=== PATIENT | female | born 1990 | race African-American/Black ===

== ENCOUNTER 2025-05-29 14:15 | Emergency (ER) | payer SELFPAY ==
--- NOTE | ~2025-05-29 | CT_ITS ---
[facility] EXAMINATION: CT abdomen pelvis w con COMPARISON: None HISTORY: RLQ pain TECHNIQUE: Axial images were obtained through the abdomen, pelvis post administration of IV contrast. Oral contrast was also administered. Coronal reconstruction images were obtained from the axial views. CT scan performed using dose optimization techniques including the following automated exposure control; adjustment of mA and/or kV; use of iterative reconstruction technique. Automatic exposure control was used to reduce radiation dose. Permanent radiation dose record is archived to PACS. FINDINGS: CT abdomen: LUNG BASES: The lung bases are clear. The visualized portions of the heart and pericardium are unremarkable. LIVER: Unremarkable, liver contours intact, no lesions. SPLEEN: Unremarkable. KIDNEYS: Right Kidney: Unremarkable. No calculi. No hydronephrosis. Left Kidney: Unremarkable. No calculi. No hydronephrosis ADRENAL GLANDS: Unremarkable. PANCREAS: Unremarkable. GALLBLADDER/BILIARY: Unremarkable. No biliary dilatation. STOMACH AND ESOPHAGUS: Visualized stomach and esophagus within normal limits. BOWEL/MESENTERY: Moderate fecal content. Appendix normal. Mesentery normal. There are no thickened or dilated loops of small bowel. ADENOPATHY/RETROPERITONEUM: No lymphadenopathy. AORTA/VASCULATURE: Normal caliber aorta. FREE FLUID OR FREE AIR: No free fluid.. CT pelvis: SOLID ORGANS/REPRODUCTIVE: There are multiple uterine fibroids identified the largest of the right uterine body 6 x 7 cm incompletely evaluated, some of the fibroids appear partially submucosal. Arising from the right ovary there is a large complex cystic focus measuring 8.2 x 8 cm. BLADDER: Within normal limits. OSSEOUS STRUCTURES: No acute osseous abnormality.No suspicious lesions. OVERLYING SOFT TISSUES: Unremarkable. IMPRESSION: 1. No acute intra-abdominal process. 2. Probable fibroid change of the uterus with a large complex right ovarian lesion possibly endometrioma, other etiologies are not excluded. Contrast- enhanced MRI is recommended Reviewed, dictated and finalized at location [facility] IMPRESSION: 1. No acute intra-abdominal process. 2. Probable fibroid change of the uterus with a large complex right ovarian les ion possibly endometrioma, other etiologies are not excluded. Contrast-enhanced MRI is recommended
--- NOTE | ~2025-05-29 | US_ITS ---
EXAMINATION: Ultrasound pelvis complete, transabdominal: DATE: 05/29/2025. INDICATION: 35-year-old with right lower quadrant pain. Finding of fibroid uterus with large complex right ovarian lesion on CT scan. Concern for ovarian torsion. Last menstrual period on May 05. TECHNIQUE: This patient declined transvaginal examination. Transabdominal ultrasound with Doppler was performed. COMPARISON: CT dated 05/29/2025. FINDINGS: Bulky uterus is noted measuring the length of 15 cm and a width of 7 cm. Multiple heterogeneous uterine masses are noted, suggestive of multiple fibroids. The fibroid mass measure up to 8 cm in diameter. However, no definite, separate cystic mass of the adnexa is noted to the right of the midline corresponding to the lesion suspected on CT scan. The 8 cm size lesion noted on the right side on the CT examination probably also represents a fibroid. Left ovary is normal in size with effusion. Right ovary is not identified. Small quantity of free fluid noted. IMPRESSION: 1. Limited examination due to refusal of transvaginal ultrasound. 2. Significantly enlarged uterus with multiple fibroids, up to 8 cm in diameter. No definite separate cystic right adnexal mass could be identified in the transabdominal ultrasound. 3. Right ovary is not identified. Left ovary is normal in size perfusion. 4. MRI pelvis with contrast may be considered for further evaluation Reviewed, dictated and finalized at location [facility]. [facility]IE[facility] IMPRESSION: 1. Limited examination due to refusal of transvaginal ultrasound. 2. Significantly enlarged uterus with multiple fibroids, up to 8 cm in diameter . No definite separate cystic right adnexal mass could be identified in the tra nsabdominal ultrasound. 3. Right ovary is not identified. Left ovary is normal in size perfusion. 4. MRI pelvis with contrast may be considered for further evaluation
[2025-05-29 14:36] VITALS: BP 112/63; PULSE 68; RESP 18; TEMP 37.3; O2SAT 99
--- NOTE | 2025-05-29 15:10 | ED_ITS ---
HPI - Abdominal Pain General Chief Complaint: Abdominal Pain <Niesha Oliva PA-C - Last Filed: 05/29/25 18:24> Stated Complaint: UPPER ABD PAIN X2D <Niesha Oliva PA-C - Last Filed: 05/29/25 18:24> Time Seen by Provider: 05/29/25 15:10 <Niesha Oliva PA-C - Last Filed: 05/29/25 18:24> Focused HPI: This is a 35 year old female that presents to the ER for abdominal pain. Ongoing over the last 2 days. Reports some diarrhea. Denies vomiting, dysuria. GENERAL: Uncomfortable, well-nourished, and in no acute distress. HEAD: Normocephalic, atraumatic. CHEST: Clear to auscultation. ?No respiratory distress. HEART: Regular rate and rhythm.? NEURO: ?Alert and oriented x3. Patient screened in triage and initial orders placed.? ?Additional care and disposition to be based upon?diagnostic testing and treatment. <Niesha Oliva PA-C - Last Filed: 05/29/25 18:24> History of Present Illness HPI narrative: I agree with the above HPI <Sathish Salcido MD - Last Filed: 05/29/25 18:52> Related Data Allergies/Adverse Reactions: Allergies Allergy/AdvReac Type Severity Reaction Status Date / Time No Known Allergies Allergy Verified 05/29/25 17:35 <Niesha Oliva PA-C - Last Filed: 05/29/25 18:24> Review of Systems 2 Review of Systems: All systems reviewed & are unremarkable except as noted in HPI and below <Niesha Oliva PA-C - Last Filed: 05/29/25 18:24> Exam 2 Narrative: APPEARANCE: Uncomfortable appearing. HEAD: normocephalic, atraumatic. EYES: PERRLA/EOMI, conjunctivae clear. NOSE: Normal no drainage EARS:TMS clear with good light reflex. THROAT: Pharynx clear, no exudate. NECK: Supple. No adenopathy, no masses. RESPIRATORY: Airway patent, respirations nonlabored. Clear to auscultation bilaterally, no rales, rhonchi, wheezing. CARDIOVASCULAR: Regular rate and rhythm without murmurs rubs or gallops. ABDOMINAL: Lower abdominal tenderness to palpation with normal bowel sounds MUSCULOSKELETAL: Moves all extremities. Strength/ROM intact, No edema, No calf tenderness. NEURO: Alert. Cranial nerves II through XII intact. Good gait. Good coordination SKIN: Warm, dry. Normal Color <Sathish Salcido MD - Last Filed: 05/29/25 18:52> Course Vital Signs Vital signs: Vital Signs Temperature 99.2 F 05/29/25 14:36 Pulse Rate 68 05/29/25 14:36 Respiratory Rate 18 05/29/25 14:36 Blood Pressure 112/63 05/29/25 14:36 Pulse Oximetry 99 05/29/25 14:36 Oxygen Delivery Room Air 05/29/25 14:36 Temperature 97.9 F 05/29/25 16:08 Pulse Rate 93 05/29/25 18:43 Respiratory Rate 16 05/29/25 18:43 Blood Pressure 110/72 05/29/25 18:43 Pulse Oximetry 100 05/29/25 18:43 Oxygen Delivery Room Air 05/29/25 16:08 <Niesha Oliva PA-C - Last Filed: 05/29/25 18:24> Vital Signs Temperature 99.2 F 05/29/25 14:36 Pulse Rate 68 05/29/25 14:36 Respiratory Rate 18 05/29/25 14:36 Blood Pressure 112/63 05/29/25 14:36 Pulse Oximetry 99 05/29/25 14:36 Oxygen Delivery Room Air 05/29/25 14:36 Temperature 97.9 F 05/29/25 16:08 Pulse Rate 93 05/29/25 18:43 Respiratory Rate 16 05/29/25 18:43 Blood Pressure 110/72 05/29/25 18:43 Pulse Oximetry 100 05/29/25 18:43 Oxygen Delivery Room Air 05/29/25 16:08 <Sathish Salcido MD - Last Filed: 05/29/25 18:52> MDM - Abdominal Pain MDM Narrative Medical decision making narrative: 35-year-old female present to the emergency department for evaluation for right lower quadrant abdominal pain. Patient is currently afebrile with no leukocytosis and hemoglobin of 12.6. No acute abnormalities on her CMP UA was negative for infection, test was negative. CT scan showed probable fibroid change of the uterus with a large complex right ovarian lesion possibly endometrioma. Ultrasound was ordered and showed significantly enlarged uterus with multiple fibroids, up to 8 cm in diameter. No definite separate cystic right adnexal mass could be identified in the transabdominal ultrasound. Patient was treated with a L of lactated Ringer's and IV Dilaudid for pain control. On re-evaluation patient is resting more comfortably. Patient was offered admission for pain control and is evaluation by OB Gyne and patient declined. Patient was encouraged to the return to the emergency department if she had any worsening symptoms. Patient will be provided outpatient follow-up with Dr. Loredo. Patient was provided additional medication for pain control for home. <Sathish Salcido MD - Last Filed: 05/29/25 18:52> Differential Diagnosis Differential diagnosis: Likely abdominal pain, acute appendicitis, calculus of kidney, constipation, diverticulitis, endometriosis, gastroenteritis, pancreatitis and small bowel obstruction <Sathish Salcido MD - Last Filed: 05/29/25 18:52> Lab Data Attestation: I reviewed the patient's lab results. <Sathish Salcido MD - Last Filed: 05/29/25 18:52> Result diagrams: 05/29/25 15:37 05/29/25 15:37 <Niesha Oliva PA-C - Last Filed: 05/29/25 18:24> Labs: Lab Results 05/29/25 05/29/25 Range/Units 15:37 15:51 WBC 7.3 (4.5-10.0) K/mm3 RBC 4.64 (4.2-5.4) M/mm3 Hgb 12.6 (12.0-15.0) g/dL Hct 38.7 (37.0-47.0) % MCV 83.4 (80-100) fl MCH 27.2 (26-34) pg MCHC 32.6 (32-36) g/dl RDW 14.4 (11.5-14.5) % Plt Count 249 (150-375) k/mm3 MPV 9.2 (7.4-10.4) fl Immature Gran % (Auto) 0.1 (0-0.5) % Neut % (Auto) 65.6 (45.5-73.1) % Lymph % (Auto) 22.0 (18.3-44.2) % [place] % (Auto) 11.6 H (2.6-8.5) % Eos % (Auto) 0.3 (0-4.4) % Baso % (Auto) 0.4 (0.2-1.2) % Lymph # (Auto) 1.60 (0.9-3.2) K/mm3 [place] # (Auto) 0.8 H (0.1-0.6) K/mm3 Eos # (Auto) 0.0 (0-0.3) K/mm3 Baso # (Auto) 0.0 (0.0-0.1) K/mm3 Abs Immat Gran (auto) 0.01 (0.00-0.031) K/mm3 Absolute Neuts (auto) 4.8 (1.3-6.7) K/mm3 Absolute Nucleated RBC 0.000 (0.0-0.012) K/mm3 Nucleated RBC % 0.0 (0.0-0.2) % Sodium 139 (137-145) mmol/L Potassium 3.9 (3.4-5.0) mmol/L Chloride 103 (98-107) mmol/L Carbon Dioxide 27 (22-30) mmol/L Anion Gap 9 (4-12) mmol/L BUN 7 (7-17) mg/dL Creatinine 0.71 (0.7-1.0) mg/dL Estim Creat Clear Calc 86 ml/min Estimated GFR > 60 (59 - ) Glucose 95 (65-110) mg/dL Calcium 9.6 (8.4-10.2) mg/dL Total Bilirubin 1.3 (0.2-1.3) mg/dL AST 25 (14-36) U/L ALT 16 (6-35) U/L Alkaline Phosphatase 61 (38-126) U/L Total Protein 9.0 H (6.3-8.2) g/dL Albumin 4.7 (3.5-5.1) g/dL Lipase 56 (23-300) U/L Urine Color Yellow (Yellow) Urine Appearance Clear (Clear) Urine pH 7.0 (5.0-9.0) Ur Specific [place] 1.011 (1.001-1.035) Urine Protein Negative (Negative) mg/dL Urine Glucose (UA) Negative (Negative) mg/dL Urine Ketones Negative (Negative) mg/dL Ur Blood (Man) Negative (Negative) Urine Nitrate Negative (Negative) Urine Bilirubin Negative (Negative) Urine Urobilinogen 0.2 (<2.0) mg/dL Leukocyte Esterase Rfl Negative (Negative) RANDALL/UL POC Urine HCG, Qual Negative (Negative) <Niesha Oliva PA-C - Last Filed: 05/29/25 18:24> Lab Results 05/29/25 05/29/25 Range/Units 15:37 15:51 WBC 7.3 (4.5-10.0) K/mm3 RBC 4.64 (4.2-5.4) M/mm3 Hgb 12.6 (12.0-15.0) g/dL Hct 38.7 (37.0-47.0) % MCV 83.4 (80-100) fl MCH 27.2 (26-34) pg MCHC 32.6 (32-36) g/dl RDW 14.4 (11.5-14.5) % Plt Count 249 (150-375) k/mm3 MPV 9.2 (7.4-10.4) fl Immature Gran % (Auto) 0.1 (0-0.5) % Neut % (Auto) 65.6 (45.5-73.1) % Lymph % (Auto) 22.0 (18.3-44.2) % [place] % (Auto) 11.6 H (2.6-8.5) % Eos % (Auto) 0.3 (0-4.4) % Baso % (Auto) 0.4 (0.2-1.2) % Lymph # (Auto) 1.60 (0.9-3.2) K/mm3 [place] # (Auto) 0.8 H (0.1-0.6) K/mm3 Eos # (Auto) 0.0 (0-0.3) K/mm3 Baso # (Auto) 0.0 (0.0-0.1) K/mm3 Abs Immat Gran (auto) 0.01 (0.00-0.031) K/mm3 Absolute Neuts (auto) 4.8 (1.3-6.7) K/mm3 Absolute Nucleated RBC 0.000 (0.0-0.012) K/mm3 Nucleated RBC % 0.0 (0.0-0.2) % Sodium 139 (137-145) mmol/L Potassium 3.9 (3.4-5.0) mmol/L Chloride 103 (98-107) mmol/L Carbon Dioxide 27 (22-30) mmol/L Anion Gap 9 (4-12) mmol/L BUN 7 (7-17) mg/dL Creatinine 0.71 (0.7-1.0) mg/dL Estim Creat Clear Calc 86 ml/min Estimated GFR > 60 (59 - ) Glucose 95 (65-110) mg/dL Calcium 9.6 (8.4-10.2) mg/dL Total Bilirubin 1.3 (0.2-1.3) mg/dL AST 25 (14-36) U/L ALT 16 (6-35) U/L Alkaline Phosphatase 61 (38-126) U/L Total Protein 9.0 H (6.3-8.2) g/dL Albumin 4.7 (3.5-5.1) g/dL Lipase 56 (23-300) U/L Urine Color Yellow (Yellow) Urine Appearance Clear (Clear) Urine pH 7.0 (5.0-9.0) Ur Specific [place] 1.011 (1.001-1.035) Urine Protein Negative (Negative) mg/dL Urine Glucose (UA) Negative (Negative) mg/dL Urine Ketones Negative (Negative) mg/dL Ur Blood (Man) Negative (Negative) Urine Nitrate Negative (Negative) Urine Bilirubin Negative (Negative) Urine Urobilinogen 0.2 (<2.0) mg/dL Leukocyte Esterase Rfl Negative (Negative) RANDALL/UL POC Urine HCG, Qual Negative (Negative) <Sathish Salcido MD - Last Filed: 05/29/25 18:52> Imaging Data Radiologist's impression: ITS Impressions Abdomen/Pelvis CT 05/29/25 17:00 IMPRESSION: 1. No acute intra-abdominal process. 2. Probable fibroid change of the uterus with a large complex right ovarian lesion possibly endometrioma, other etiologies are not excluded. Contrast- enhanced MRI is recommended Pelvis Ultrasound 05/29/25 17:57 IMPRESSION: 1. Limited examination due to refusal of transvaginal ultrasound. 2. Significantly enlarged uterus with multiple fibroids, up to 8 cm in diameter. No definite separate cystic right adnexal mass could be identified in the transabdominal ultrasound. 3. Right ovary is not identified. Left ovary is normal in size perfusion. 4. MRI pelvis with contrast may be considered for further evaluation <Niesha Oliva PA-C - Last Filed: 05/29/25 18:24> ITS Impressions Abdomen/Pelvis CT 05/29/25 17:00 IMPRESSION: 1. No acute intra-abdominal process. 2. Probable fibroid change of the uterus with a large complex right ovarian lesion possibly endometrioma, other etiologies are not excluded. Contrast- enhanced MRI is recommended Pelvis Ultrasound 05/29/25 17:57 IMPRESSION: 1. Limited examination due to refusal of transvaginal ultrasound. 2. Significantly enlarged uterus with multiple fibroids, up to 8 cm in diameter. No definite separate cystic right adnexal mass could be identified in the transabdominal ultrasound. 3. Right ovary is not identified. Left ovary is normal in size perfusion. 4. MRI pelvis with contrast may be considered for further evaluation <Sathish Salcido MD - Last Filed: 05/29/25 18:52> Discharge Plan Discharge Clinical Impression: Fibroid uterus Qualifiers: Uterine leiomyoma location: unspecified location Qualified Code(s): D25.9 - Leiomyoma of uterus, unspecified <Niesha Oliva PA-C - Last Filed: 05/29/25 18:24> Patient Disposition: Home <Niesha Oliva PA-C - Last Filed: 05/29/25 18:24> Condition: Stable <Niesha Oliva PA-C - Last Filed: 05/29/25 18:24> Instructions: Antibiotic Form, Uterine Fibroids (ED) <Niesha Oliva PA-C - Last Filed: 05/29/25 18:24> Additional Instructions: You were offered admission for further evaluation by OB Gyne and for pain control. You preferred to have outpatient follow-up. Ibuprofen for pain control Hymera as needed for additional pain control. Have close follow-up with OB Gyne. If you have any worsening symptoms please call or return to the emergency department. <Niesha Oliva PA-C - Last Filed: 05/29/25 18:24> Patient Language: Fijian <Niesha Oliva PA-C - Last Filed: 05/29/25 18:24> Prescriptions: New hydrocodone-acetaminophen 5-325 mg tablet 1 tablet PO Q12H PRN (Reason: pain) Qty: 14 0RF <Niesha Oliva PA-C - Last Filed: 05/29/25 18:24> Follow-up/Referrals: Ingrid Loredo MD [Physician, [employer]INE [employer]ER] PHYSICIAN,TRADING MANAGER [Primary Care Provider, Internal Medicine] <Niesha Oliva PA-C - Last Filed: 05/29/25 18:24>
[2025-05-29] MEDS: FAMOTIDINE 20 MG/2 ML VIAL IV PUSH (15:37)
[2025-05-29] MEDS: ONDANSETRON INJ 4 MG/2 ML VIAL IV PUSH ×2 (15:37→17:35)
[2025-05-29 15:48] LABS: Hematocrit 38.7 % (37.0-47.0); Hemoglobin 12.6 g/dL (12.0-15.0); Immature Granulocyte Percent A 0.1 % (0-0.5); Lymphocytes Absolute Auto 1.60 K/mm3 (0.9-3.2); Mean Corpuscular HGB Conc 32.6 g/dl (32-36); Mean Corpuscular Hemoglobin 27.2 pg (26-34); Mean Corpuscular Volume 83.4 fl (80-100); Nucleated Red Blood Cells Absolute Auto 0.000 K/mm3 (0.0-0.012); Nucleated Red Blood Cells Perc 0.0 % (0.0-0.2); Platelet Count Result 249 k/mm3 (150-375); Red Blood Count 4.64 M/mm3 (4.2-5.4); White Blood Count 7.3 K/mm3 (4.5-10.0)
[2025-05-29 15:49] LABS: Add Urine Microscopic? NO; Appearance Urine Clear (Clear); Glucose Urine UA Negative (Negative); Leukocyte Esterase Ur Negative LEU/UL (Negative); Nitrate Urine Negative (Negative); Specific Grav Ur 1.011 (1.001-1.035)
[2025-05-29 15:52] LABS: BEDSIDEPREGUCG Negative (Negative)
[2025-05-29 15:58] LABS: Alanine Aminotransferase 16 U/L (6-35); Albumin Level 4.7 g/dL (3.5-5.1); Alkaline Phosphatase 61 U/L (38-126); Anion Gap 9 mmol/L (4-12); Aspartate Amino Transferase 25 U/L (14-36); Bilirubin,Total 1.3 mg/dL (0.2-1.3); Blood Urea Nitrogen 7 mg/dL (7-17); Calcium 9.6 mg/dL (8.4-10.2); Carbon Dioxide 27 mmol/L (22-30); Chloride 103 mmol/L (98-107); Estimated CRCL calculation 86 ml/min; Estimated Glomerular Filt Rate > 60; Glucose 95 mg/dL (65-110); Lipase 56 U/L (23-300); Potassium 3.9 mmol/L (3.4-5.0); Sodium 139 mmol/L (137-145); Total Protein 9.0 g/dL (6.3-8.2)
[2025-05-29] MEDS: Please add drug allergy info to patient profile. 1 EACH XX (16:04)
[2025-05-29 16:08] VITALS: BP 124/79; RESP 20; TEMP 36.6; O2SAT 100
[2025-05-29] MEDS: HYDROmorphone HCL INJ (*CRX) 1 MG/ML SYR IV PUSH (17:36)
[2025-05-29] MEDS: SODIUM CHLORIDE 0.9% IV 1,000 ML 999 ML IV CONT (17:47)
[2025-05-29] MEDS: KETOROLAC 30 MG/ML VIAL (*BKC) IV PUSH (18:35)
[2025-05-29 18:43] VITALS: BP 110/72; PULSE 93; RESP 16; O2SAT 100
== END 2025-05-29 18:45 | disposition home or self-care (01) ==
PROVIDERS: Physician Assistant; Emergency Provider Emergency Medicine
DX: D25.9 Leiomyoma of uterus, unspecified (principal)
CPT/HCPCS: 36415; 74177; 76856; 80053; 81003; 81025; 83690; 85025; 96361; 96374; 96375; 96376; 99284; J1171; J1885; J2405; J7030; Q9967

== ENCOUNTER 2025-05-30 17:47 | Observation (INO) | payer SELFPAY ==
--- NOTE | ~2025-05-30 | CT_ITS ---
EXAMINATION: CT abdomen pelvis w con DATE: 05/30/2025 20:00 INDICATION: 35-year-old with generalized abdominal pain. TECHNIQUE: Computed tomography (CT) of the abdomen and pelvis was performed with the 100 cc intravenous contrast. Automated exposure control and iterative reconstruction technique were employed. The dose-length product was 229.23 mGy-cm. COMPARISON: CT dated 05/29/2025. Ultrasound pelvis dated 05/29/2025. FINDINGS: Lung bases do not show focal lesions. Mildly distended gallbladder. No calcified stones. Pancreas shows no acute findings. No free fluid or free air in the peritoneal cavity. Fecal impaction of the proximal colon. Inlay large uterus with multiple nodular masses representing fibroids. One of the masses to the right of the midline near the fundus measuring 7 cm in diameter is predominantly cystic in nature on the CT. Ovaries are not distinctly visible. IMPRESSION: 1. No acute findings in the upper abdomen and pelvis. 2. Enlarged uterus measuring 15 x 8 x 8.5 cm containing multiple solid fibroids. One of the masses of interest near the fundus to the right of the midline, 7 cm in diameter is predominantly cystic in nature. This is similar in appearance to the prior study of 05/29/2025. This probably indicates fibroid undergoing degeneration. Sarcoma of the uterus is not ruled out. More definitive evaluation of these findings by MRI with and without contrast is suggested, as noted in the report on pelvic ultrasound. Reviewed, dictated and finalized at location T. RVENTIONIST IMPRESSION: 1. No acute findings in the upper abdomen and pelvis. 2. Enlarged uterus measuring 15 x 8 x 8.5 cm containing multiple solid fibroids . One of the masses of interest near the fundus to the right of the midline, 7 cm in diameter is predominantly cystic in nature. This is similar in appearance to the prior study of 05/29/2025. This probably indicates fibroid undergoing d egeneration. Sarcoma of the uterus is not ruled out. More definitive evaluation of these findings by MRI with and without contrast is suggested, as noted in the report on pelvic ultrasound.
[2025-05-30 17:53] VITALS: BP 133/80; PULSE 106; RESP 18; TEMP 37.4; O2SAT 100
--- NOTE | 2025-05-30 18:45 | ECG_ITS ---
Test Date: 2025-05-30 20:31:47 Measurements Intervals [place] Rate: 94 P: 76 SC: 140 QRS: 22 QRSD: 86 T: 43 QT: 327 QTc: 411 Interpretive Statements SINUS RHYTHM NONSPECIFIC T-WAVE ABNORMALITY ABNORMAL ECG No previous ECG available for comparison Electronically Signed On 05-31-2025 08:50:30 CATTLE DRIVER by Landry John M.D.
--- NOTE | 2025-05-30 19:01 | ED_ITS ---
HPI - Female Genitourinary General Chief complaint: [employer] <Petra Celestin APRN - Last Filed: 05/30/25 21:11> Stated complaint: pelvic pain, seen here yesterday <Petra Celestin APRN - Last Filed: 05/30/25 21:11> Time Seen by Provider: 05/30/25 18:07 <Petra Celestin APRN - Last Filed: 05/30/25 21:11> History of Present Illness HPI Narrative: Patient is a 35-year-old female who presents to with abdominal this started approximately 3 days ago. She came to the ER for evaluation yesterday and was offered admission but declined and was sent home on pain medication. Patient reports the oral pain medication has not been helping and she has increased pain with any movement. She reports her last bowel movement was yesterday and it was watery. Patient reports she has never had he had in the past. She reports she called OBGYN and tried to make an appointment but they could get her in until July 04. Patient reports she has never been , has no urinary symptoms, and has no concerns for STDs. She denies any other medical history relevant to this ER visit. <Petra Celestin APRN - Last Filed: 05/30/25 21:11> Related Data Allergies/Adverse reactions: Allergies Allergy/AdvReac Type Severity Reaction Status Date / Time No Known Allergies Allergy Verified 05/30/25 17:56 <Petra Celestin APRN - Last Filed: 05/30/25 21:11> Review of Systems 2 Review of Systems: All systems reviewed & are unremarkable except as noted in HPI and below <Petra Celestin APRN - Last Filed: 05/30/25 21:11> [facility] Social History Social History: Social History Smoking status: Never smoker Second hand tobacco smoke exposure: No Alcohol intake: never Substance use type: does not use Lack of Transportation: No Lack of Food: Never True Current Housing: I Have Housing Concerned About Future Housing: No Difficulty Paying Gas/Electric Bills: No Difficulty Paying for Meds: No Currently Unemployed: No Education: Master's Degree or Higher Difficulty w/ Childcare or Family Care: No Spiritual care concerns: No <Petra Celestin APRN - Last Filed: 05/30/25 21:11> Exam 2 Narrative: GENERAL: Ill appearing, well-nourished, non-toxic, in acute distress due to pain. HEAD: Normocephalic, atraumatic. NECK: Supple. No adenopathy, no masses. RESPIRATORY: Airway patent, respirations nonlabored. Clear to auscultation bilaterally, no rales, rhonchi, wheezing. CARDIOVASCULAR: Tachycardia, regular rhythm without murmurs, rubs, or gallops. Peripheral pulses 2+ and equal bilaterally. ABDOMINAL: Soft, significantly tender with palpation, nondistended, no hepatosplenomegaly. Normoactive BS. MUSCULOSKELETAL: Moves all extremities. Strength/ROM intact without gross deformities. SKIN: Warm, dry, normal color. No rashes. NEURO: A&O X3. Speech clear. Cranial nerves II-XII intact. No ataxic movements. PSYCHIATRIC: Tearful <Petra Celestin APRN - Last Filed: 05/30/25 21:11> Course PLAY THERAPIST/PA Physician Supervision This visit was performed by both a physician and an Advanced Practice Provider. I performed all aspects of the Medical Decision Making as documented. <Roland Tariq MD - Last Filed: 05/31/25 02:44> Vital Signs Vital signs: Vital Signs Temperature 37.4 C 05/30/25 17:53 Pulse Rate 106 H 05/30/25 17:53 Respiratory Rate 18 05/30/25 17:53 Blood Pressure 133/80 05/30/25 17:53 Pulse Oximetry 100 05/30/25 17:53 Oxygen Delivery Room Air 05/30/25 17:53 Temperature 36.6 C 05/30/25 22:50 Pulse Rate 80 05/30/25 22:50 Respiratory Rate 20 05/30/25 22:50 Blood Pressure 113/70 05/30/25 22:50 Pulse Oximetry 100 05/30/25 22:50 Oxygen Delivery Room Air 05/30/25 23:00 <Petra Celestin APRN - Last Filed: 05/30/25 21:11> Vital Signs Temperature 37.4 C 05/30/25 17:53 Pulse Rate 106 H 11/26/25 17:53 Respiratory Rate 18 05/30/25 17:53 Blood Pressure 133/80 05/30/25 17:53 Pulse Oximetry 100 05/30/25 17:53 Oxygen Delivery Room Air 05/30/25 17:53 Temperature 36.6 C 05/30/25 22:50 Pulse Rate 80 05/30/25 22:50 Respiratory Rate 20 05/30/25 22:50 Blood Pressure 113/70 05/30/25 22:50 Pulse Oximetry 100 05/30/25 22:50 Oxygen Delivery Room Air 05/30/25 23:00 <Roland Tariq MD - Last Filed: 05/31/25 02:44> MDM - Female Genitourinary MDM Narrative Medical decision making narrative: Patient is a 35-year-old female who presents to with abdominal this started approximately 3 days ago. She came to the ER for evaluation yesterday and was offered admission but declined and was sent home on pain medication. Patient reports the oral pain medication has not been helping and she has increased pain with any movement. She reports her last bowel movement was yesterday and it was watery. Patient reports she has never had he had in the past. She reports she called OBGYN and tried to make an appointment but they could get her in until July 04. Patient reports she has never been , has no urinary symptoms, and has no concerns for STDs. She denies any other medical history relevant to this ER visit. Labs Ordered: CBC, CMP, CRP, lactic acid, PTT, INR, lipase, UA Imaging Ordered: CT abdomen pelvis (per OBGYN request) Medications Ordered: 1 L normal saline IV bolus, Dilaudid IV Results: Pt's CT scan indicates No acute findings in the upper abdomen and pelvis. 2. Enlarged uterus measuring 15 x 8 x 8.5 cm containing multiple solid fibroids. One of the masses of interest near the fundus to the right of the midline, 7 cm in diameter is predominantly cystic in nature. This is similar in appearance to the prior study of 05/29/2025. This probably indicates fibroid undergoing degeneration. Sarcoma of the uterus is not ruled out. More definitive evaluation of these findings by MRI with and without contrast is suggested, as noted in the report on pelvic ultrasound. Diagnosis: uterine fibroid, ovarian cyst, pain control Consults: 1844-spoke with OBGYN, Dr. Vásquez, who is in agreement with plan for admission. She would like pt's CT scan be repeated to ensure there are no other acute abdominal concerns that weren't present on pt's scan yesterday. 2044- Spoke with Dr. Stephenson, hospitalist, who requests pt be admitted under OBGYN service. 2099-Spoke with Dr. Vásquez again who was in agreement with plan to admit patient under her name. She requests pain medication orders are placed. Pt does not need to be NPO. She requests pt receive maintenance IV fluids. MDM: Results of imaging and lab work shared with patient. It was advised patient be admitted to the hospital for further evaluation and treatment. Patient verbalized understanding and is in agreement with plan. <Petra Celestin, [employer] - Last Filed: 05/30/25 21:11> Differential Diagnosis Differential diagnosis: Likely urinary tract infection, ovarian cyst, ruptured ovarian cyst and other (uterine fibroid, constipation, appendicitis) <Petra Celestin [employer] - Last Filed: 05/30/25 21:11> Lab Data Attestation: I reviewed the patient's lab results. <Petra Celestin [employer] - Last Filed: 05/30/25 21:11> Result diagrams: 05/30/25 19:07 05/30/25 19:07 <Petra Celestin [employer] - Last Filed: 05/30/25 21:11> Labs: Lab Results 05/30/25 05/30/25 Range/Units 19:07 20:20 WBC 7.9 (4.5-10.0) K/mm3 RBC 4.11 L (4.2-5.4) M/mm3 Hgb 11.0 L (12.0-15.0) g/dL Hct 34.1 L (37.0-47.0) % MCV 83.0 (80-100) fl MCH 26.8 (26-34) pg MCHC 32.3 (32-36) g/dl RDW 14.2 (11.5-14.5) % Plt Count 232 (150-375) k/mm3 MPV 9.4 (7.4-10.4) fl Immature Gran % (Auto) 0.3 (0-0.5) % Neut % (Auto) 67.5 (45.5-73.1) % Lymph % (Auto) 20.3 (18.3-44.2) % [place] % (Auto) 11.0 H (2.6-8.5) % Eos % (Auto) 0.5 (0-4.4) % Baso % (Auto) 0.4 (0.2-1.2) % Lymph # (Auto) 1.61 (0.9-3.2) K/mm3 [place] # (Auto) 0.9 H (0.1-0.6) K/mm3 Eos # (Auto) 0.0 (0-0.3) K/mm3 Baso # (Auto) 0.0 (0.0-0.1) K/mm3 Abs Immat Gran (auto) 0.02 (0.00-0.031) K/mm3 Absolute Neuts (auto) 5.4 (1.3-6.7) K/mm3 Absolute Nucleated RBC 0.000 (0.0-0.012) K/mm3 Nucleated RBC % 0.0 (0.0-0.2) % PT 14.4 (11.1-14.7) Seconds INR 1.1 APTT 28.9 (22.3-36.8) Seconds Sodium 138 (137-145) mmol/L Potassium 3.5 (3.4-5.0) mmol/L Chloride 108 H (98-107) mmol/L Carbon Dioxide 27 (22-30) mmol/L Anion Gap 3 L (4-12) mmol/L BUN 12 D (7-17) mg/dL Creatinine 0.78 (0.7-1.0) mg/dL Estim Creat Clear Calc 79 ml/min Estimated GFR > 60 (59 - ) Glucose 88 (65-110) mg/dL Lactic Acid 0.7 (0.7-2.0) mmol/L Calcium 8.8 (8.4-10.2) mg/dL Total Bilirubin 0.8 (0.2-1.3) mg/dL AST 29 (14-36) U/L ALT 16 (6-35) U/L Alkaline Phosphatase 62 (38-126) U/L C-Reactive Protein 4.1 H (<1.0) mg/dL Total Protein 7.9 (6.3-8.2) g/dL Albumin 4.1 (3.5-5.1) g/dL Lipase 277 (23-300) U/L Urine Color Yellow (Yellow) Urine Appearance Clear (Clear) Urine pH 5.5 (5.0-9.0) Ur Specific [place] 1.017 (1.001-1.035) Urine Protein Negative (Negative) mg/dL Urine Glucose (UA) Negative (Negative) mg/dL Urine Ketones Trace H (Negative) mg/dL Ur Blood (Man) Negative (Negative) Urine Nitrate Negative (Negative) Urine Bilirubin Negative (Negative) Urine Urobilinogen 0.2 (<2.0) mg/dL Leukocyte Esterase Rfl Negative (Negative) RANDALL/UL <Petra Celestin, [employer] - Last Filed: 05/30/25 21:11> Lab Results 05/30/25 05/30/25 Range/Units 19:07 20:20 WBC 7.9 (4.5-10.0) K/mm3 RBC 4.11 L (4.2-5.4) M/mm3 Hgb 11.0 L (12.0-15.0) g/dL Hct 34.1 L (37.0-47.0) % MCV 83.0 (80-100) fl MCH 26.8 (26-34) pg MCHC 32.3 (32-36) g/dl RDW 14.2 (11.5-14.5) % Plt Count 232 (150-375) k/mm3 MPV 9.4 (7.4-10.4) fl Immature Gran % (Auto) 0.3 (0-0.5) % Neut % (Auto) 67.5 (45.5-73.1) % Lymph % (Auto) 20.3 (18.3-44.2) % [place] % (Auto) 11.0 H (2.6-8.5) % Eos % (Auto) 0.5 (0-4.4) % Baso % (Auto) 0.4 (0.2-1.2) % Lymph # (Auto) 1.61 (0.9-3.2) K/mm3 [place] # (Auto) 0.9 H (0.1-0.6) K/mm3 Eos # (Auto) 0.0 (0-0.3) K/mm3 Baso # (Auto) 0.0 (0.0-0.1) K/mm3 Abs Immat Gran (auto) 0.02 (0.00-0.031) K/mm3 Absolute Neuts (auto) 5.4 (1.3-6.7) K/mm3 Absolute Nucleated RBC 0.000 (0.0-0.012) K/mm3 Nucleated RBC % 0.0 (0.0-0.2) % PT 14.4 (11.1-14.7) Seconds INR 1.1 APTT 28.9 (22.3-36.8) Seconds Sodium 138 (137-145) mmol/L Potassium 3.5 (3.4-5.0) mmol/L Chloride 108 H (98-107) mmol/L Carbon Dioxide 27 (22-30) mmol/L Anion Gap 3 L (4-12) mmol/L BUN 12 D (7-17) mg/dL Creatinine 0.78 (0.7-1.0) mg/dL Estim Creat Clear Calc 79 ml/min Estimated GFR > 60 (59 - ) Glucose 88 (65-110) mg/dL Lactic Acid 0.7 (0.7-2.0) mmol/L Calcium 8.8 (8.4-10.2) mg/dL Total Bilirubin 0.8 (0.2-1.3) mg/dL AST 29 (14-36) U/L ALT 16 (6-35) U/L Alkaline Phosphatase 62 (38-126) U/L C-Reactive Protein 4.1 H (<1.0) mg/dL Total Protein 7.9 (6.3-8.2) g/dL Albumin 4.1 (3.5-5.1) g/dL Lipase 277 (23-300) U/L Urine Color Yellow (Yellow) Urine Appearance Clear (Clear) Urine pH 5.5 (5.0-9.0) Ur Specific [place] 1.017 (1.001-1.035) Urine Protein Negative (Negative) mg/dL Urine Glucose (UA) Negative (Negative) mg/dL Urine Ketones Trace H (Negative) mg/dL Ur Blood (Man) Negative (Negative) Urine Nitrate Negative (Negative) Urine Bilirubin Negative (Negative) Urine Urobilinogen 0.2 (<2.0) mg/dL Leukocyte Esterase Rfl Negative (Negative) RANDALL/UL <Roland Tariq MD - Last Filed: 05/31/25 02:44> Imaging Data Attestation: I personally reviewed and interpreted this imaging study as follows: < Petra Celestin APRN - Last Filed: 05/30/25 21:11> Radiologist's impression: Impressions Abdomen/Pelvis CT 05/30/25 20:00 IMPRESSION: 1. No acute findings in the upper abdomen and pelvis. 2. Enlarged uterus measuring 15 x 8 x 8.5 cm containing multiple solid fibroids. One of the masses of interest near the fundus to the right of the midline, 7 cm in diameter is predominantly cystic in nature. This is similar in appearance to the prior study of 05/29/2025. This probably indicates fibroid undergoing degeneration. Sarcoma of the uterus is not ruled out. More definitive evaluation of these findings by MRI with and without contrast is suggested, as noted in the report on pelvic ultrasound. <Petra Celestin APRN - Last Filed: 05/30/25 21:11> Discharge Plan Discharge Clinical Impression: Inadequate pain control, Uterine fibroid, Ovarian cyst <Petra Celestin APRN - Last Filed: 05/30/25 21:11> Patient Disposition: Still a Patient <Petra Celestin APRN - Last Filed: 05/30/25 21:11> Condition: Stable <Petra Celestin APRN - Last Filed: 05/30/25 21:11>
[2025-05-30] MEDS: SODIUM CHLORIDE 0.9% IV 1,000 ML 999 ML IV CONT (19:11)
[2025-05-30] MEDS: HYDROmorphone HCL INJ (*CRX) 1 MG/ML SYR 0.5 MG IV PUSH ×2 (19:13→21:33)
[2025-05-30 19:14] LABS: Hematocrit 34.1 % (37.0-47.0); Hemoglobin 11.0 g/dL (12.0-15.0); Immature Granulocyte Percent A 0.3 % (0-0.5); Lymphocytes Absolute Auto 1.61 K/mm3 (0.9-3.2); Mean Corpuscular HGB Conc 32.3 g/dl (32-36); Mean Corpuscular Hemoglobin 26.8 pg (26-34); Mean Corpuscular Volume 83.0 fl (80-100); Nucleated Red Blood Cells Absolute Auto 0.000 K/mm3 (0.0-0.012); Nucleated Red Blood Cells Perc 0.0 % (0.0-0.2); Platelet Count Result 232 k/mm3 (150-375); Red Blood Count 4.11 M/mm3 (4.2-5.4); White Blood Count 7.9 K/mm3 (4.5-10.0)
[2025-05-30 19:25] LABS: INR 1.1; Prothrombin Time 14.4 Seconds (11.1-14.7)
[2025-05-30 19:26] LABS: Partial Thromboplastin Time 28.9 Seconds (22.3-36.8)
[2025-05-30 19:43] LABS: Alanine Aminotransferase 16 U/L (6-35); Albumin Level 4.1 g/dL (3.5-5.1); Alkaline Phosphatase 62 U/L (38-126); Anion Gap 3 mmol/L (4-12); Aspartate Amino Transferase 29 U/L (14-36); Bilirubin,Total 0.8 mg/dL (0.2-1.3); Blood Urea Nitrogen 12 mg/dL (7-17); CRP 4.1 mg/dL (<1.0); Calcium 8.8 mg/dL (8.4-10.2); Carbon Dioxide 27 mmol/L (22-30); Chloride 108 mmol/L (98-107); Estimated CRCL calculation 79 ml/min; Estimated Glomerular Filt Rate > 60; Glucose 88 mg/dL (65-110); Lipase 277 U/L (23-300); Potassium 3.5 mmol/L (3.4-5.0); Sodium 138 mmol/L (137-145); Total Protein 7.9 g/dL (6.3-8.2)
[2025-05-30 20:26] LABS: Add Urine Microscopic? NO; Appearance Urine Clear (Clear); Glucose Urine UA Negative (Negative); Leukocyte Esterase Ur Negative LEU/UL (Negative); Nitrate Urine Negative (Negative); Specific Grav Ur 1.017 (1.001-1.035)
[2025-05-30 21:28] VITALS: BP 110/74; PULSE 84; RESP 16; TEMP 36.9; O2SAT 100
[2025-05-30] MEDS: SODIUM CHLORIDE 0.9% IV 1,000 ML 125 ML IV CONT (21:30)
[2025-05-30] MEDS: KETOROLAC 15 MG/ML VIAL (*BKC) IV PUSH (21:33)
[2025-05-30] MEDS: ONDANSETRON INJ 4 MG/2 ML VIAL IV PUSH (21:33)
--- NOTE | 2025-05-30 22:18 | WPCEDHO ---
ED Hand Off Checklist All vitals saved:y IV Site documented:y All med administrations documented:y Triage Note Triage Note To ed with c/o abd pain. Was 05/30/25 18:00 seen yesterday and diagnosed with a large fibroid and told to follow up with bell spinner sousaphones. States she can't get into bell spinner sousaphones until 07/04 and the pain meds prescribed are not helping. 1800-Patient walked into room without difficulty. Patient then started crying and rocking on stretcher with c/o right lower abdominal pain Allergies No Known Allergies Allergy (Verified 05/30/25 17:56) Active Medications including assessments/comments Sodium Chloride (Normal Saline Iv) 1,000 mls @ 125 mls/hr IV CONT .Q8H DAI Last Admin: 05/30/25 21: Dose: 125 mls/hr Documented By: [facility] Infusion/Titration Document 05/30/25 21:30 [facility] (Rec: 05/30/25 21:30 [facility] [id number]) Intake IV Site Peripheral Access Right Antecubital Container Volume 1,000 Waste Amount 0 Dosing Infusion Rate 125 Cumulative Dose Not Applicable Increase/Decrease Started Elapsed Time Elapsed Time ( 0m minutes) Ondansetron HCl (Ondansetron Inj 4 Mg/2 Ml Vial) 4 mg IV PUSH Q4H PRN PRN Reason: Nausea Last Admin: 05/30/25 21:33 Dose: 4 mg Documented By: [facility]CA Administered/Completed Medications Discontinued Medications Hydromorphone HCl (Hydromorphone Hcl Inj (*Crx) 1 Mg/Ml Syr) 0.5 mg IV PUSH ONCE STA Stop: 05/30/25 18:53 Last Admin: 05/30/25 19:13 Dose: 0.5 mg Documented By: [facility]CA Hydromorphone HCl (Hydromorphone Hcl Inj (*Crx) 1 Mg/Ml Syr) 0.5 mg IV PUSH ONCE STA Stop: 05/30/25 21:20 Last Admin: 05/30/25 21:33 Dose: 0.5 mg Documented By: [facility]CA Sodium Chloride (Normal Saline Iv) 1,000 mls @ 999 mls/hr IV CONT .Q1H1M STA Stop: 05/30/25 19:44 Last Infusion: 05/30/25 20:14 Dose: Infused Documented By: Admin: 05/30/25 19:11 Dose: 999 mls/hr Documented By: [facility]CA Ketorolac Tromethamine (Ketorolac 15 Mg/Ml Vial (*Bkc)) 15 mg IV PUSH ONCE ONE Stop: 05/30/25 21:20 Last Admin: 05/30/25 21:33 Dose: 15 mg Documented By: [facility]CA Interventions/Assessments IV / Saline Lock, Insert Start: 05/30/25 17:47 Freq: Status: Active Protocol: Document 05/30/25 19:05 TLB (Rec: 05/30/25 19:06 TLB [id number]) IV Assessment Peripheral Access Right Antecubital IV Catheter Access Initiated IV Insertion Date 05/30/25 IV Insertion Time 19:06 Catheter Gauge 20 IV Insertion 1 Attempts IV Site Assessment WNL IV Care and WNL,Access Locked Maintenance PA: Reproductive Assessment Start: 05/30/25 17:47 Freq: Status: Active Protocol: Document 05/30/25 18:05 [facility]CA (Rec: 05/30/25 18:06 TLB [id number]) Reproductive Assessment Date of Last 05/05/25 Menstrual Period Now No Breast Feeding Now No Hx Hysterectomy No Hx Tubal Ligation No Vaginal Bleeding Assessment Associated Symptoms None Last Vital Signs Temperature 98.4 F 05/30/25 21:28 Pulse Rate 84 05/30/25 21:28 Respiratory Rate 16 05/30/25 21:28 Pulse Oximetry 100 05/30/25 21:28 Blood Pressure 110/74 05/30/25 21:28 Blood Pressure Mean 86 05/30/25 21:28 Blood Pressure Position Supine 05/30/25 21:28 Oxygen Delivery Room Air 05/30/25 17:53 Weight 68.7 kg 05/30/25 18:00 Last Result - Abnormals Only RBC 4.11 M/mm3 (4.2-5.4) L 05/30/25 19:07 Hgb 11.0 g/dL (12.0-15.0) L 05/30/25 19:07 Hct 34.1 % (37.0-47.0) L 05/30/25 19:07 [place] % (Auto) 11.0 % (2.6-8.5) H 05/30/25 19:07 [place] # (Auto) 0.9 K/mm3 (0.1-0.6) H 05/30/25 19:07 Chloride 108 mmol/L (98-107) H 05/30/25 19:07 Anion Gap 3 mmol/L (4-12) L 05/30/25 19:07 C-Reactive Protein 4.1 mg/dL (<1.0) H 05/30/25 19:07 Urine Ketones Trace mg/dL (Negative) H 05/30/25 20:20 Most Recent Suicide Severity Rating Suicide Severity Rating NO RISK INDICATED 05/30/25 18:00
[2025-05-30 22:37] VITALS: BMI 25.2
--- NOTE | 2025-05-30 22:45 | ADMGEN ---
This patient, Paulette Mckinley, was admitted to Medical Room 246-01. Patient/family oriented to hospital policies and general routines including ID bracelet, bed and alarms, visiting hours, pain management, procedures, bathroom and other care routines, personal items, smoking policy, room service/diet, and visiting hours. Information on how to activate the Rapid Response Team has been discussed. Patient/Family are encouraged to report perceived risks to care and to ask questions if they do not understand what they are told or what they should do.
[2025-05-30 22:50] VITALS: BP 113/70; PULSE 80; RESP 20; TEMP 36.6; O2SAT 100
[2025-05-30 22:51] VITALS: BMI 25.0
[2025-05-31 05:35] VITALS: BP 100/57; PULSE 81; RESP 20; TEMP 36.6; O2SAT 100
[2025-05-31] MEDS: SODIUM CHLORIDE 0.9% IV 1,000 ML 125 ML IV CONT (06:19)
--- NOTE | 2025-05-31 09:39 | P.HP_ITS ---
H&P: HPI History of Present Illness Date/Time: 05/31/25 09:39 Chief Complaint: pelvic pain Narrative: Patient is a 35 year old female who presents for pelvic pain. She was seen in the ER three days ago for similar pain, that was abrupt in onset and constant. She denies vaginal bleeding, fevers, chills, or vomiting. She denies dysuria. While in the ER, pelvic US and CT AP demonstrated multiple large fibroids th roughout her uterus, including the largest measuring 8cm in the R fundal region that appeared cystic, consistent with a degenerating fibroid. She reports her pain has improved overnight. She is tolerating liquids, has not tried to eat. She denies nausea and vomiting this morning. Review of Systems Review of Systems: All systems reviewed & are unremarkable except as noted in HPI and below PMFSH Social History Social History Smoking status: Never smoker Second hand tobacco smoke exposure: No Alcohol intake: never Substance use type: does not use Lack of Transportation: No Lack of Food: Never True Current Housing: I Have Housing Concerned About Future Housing: No Difficulty Paying Gas/Electric Bills: No Difficulty Paying for Meds: No Currently Unemployed: No Education: Master's Degree or Higher Difficulty w/ Childcare or Family Care: No Spiritual care concerns: No Meds Home Medications and Allergies Home Medications ?Medication ?Instructions ?Recorded ?Confirmed ?Type hydrocodone 5 mg-acetaminophen 325 1 tablet PO Q12H TN N pain #14 tabs 05/29/25 05/30/25 Rx mg tablet Allergies Allergy/AdvReac Type Severity Reaction Status Date / Time No Known Allergies Allergy Verified 05/30/25 17:56 Vital Signs Vital Signs - 24 hr 05/30/25 17:53 05/30/25 21:28 05/30/25 22:50 Temperature 99.4 F 98.4 F 97.9 F Pulse Rate 106 H 84 80 Respiratory Rate 18 16 20 Blood Pressure 133/80 110/74 113/70 Pulse Oximetry 100 100 100 Oxygen Delivery Room Air 05/30/25 23:00 05/31/25 05:35 Temperature 97.8 F Pulse Rate 81 Respiratory Rate 20 Blood Pressure 100/57 L Pulse Oximetry 100 Oxygen Delivery Room Air Exam Const: General: comfortable and no acute distress Eyes: General: appearance normal, both eyes and all related structures Resp: Effort & Inspection: normal respiratory effort GI: Inspection: non-distended GI Palp: Yes Soft to palpation and Yes Tenderness to palpation present (GI) (in RLQ, correlated to degenerating fibroid) H&P: Results Labs Labs: Short CBC 05/30/25 Range/Units 19:07 WBC 7.9 (4.5-10.0) K/mm3 Hgb 11.0 L (12.0-15.0) g/dL Hct 34.1 L (37.0-47.0) % Plt Count 232 (150-375) k/mm3 BMP 05/30/25 19:07 Sodium 138 Potassium 3.5 Chloride 108 H Carbon Dioxide 27 BUN 12 D Creatinine 0.78 Glucose 88 Calcium 8.8 Liver Function 05/30/25 Range/Units 19:07 Total Bilirubin 0.8 (0.2-1.3) mg/dL AST 29 (14-36) U/L ALT 16 (6-35) U/L Alkaline Phosphatase 62 (38-126) U/L Albumin 4.1 (3.5-5.1) g/dL Urine 05/30/25 Range/Units 20:20 Urine Color Yellow (Yellow) Urine Appearance Clear (Clear) Urine pH 5.5 (5.0-9.0) Ur Specific [place] 1.017 (1.001-1.035) Urine Protein Negative (Negative) mg/dL Urine Glucose (UA) Negative (Negative) mg/dL Assessment and Plan Assessment and plan (1) Degeneration of uterine fibroid: Code(s): D25.9 - Leiomyoma of uterus, unspecified Status: Acute Assessment and Plan: - pelvic pain of 3 days duration, mostly right sided - no improvement with norco at home - pelvic CT and US demonstrates multiple large fibroids, largest in the R fundal region measuring 8cm and appearing cystic, c/w degenerating fibroid - discussed degenerating fibroid pain with patient, may need medical vs surgical treatment in the future for myomas - scheduled IV toradol for fibroid pain - ok to transition to PO ibuprofen 600mg q6h when patient is able - plan for follow up in office to discuss further management
[2025-05-31 13:42] VITALS: BP 100/51; PULSE 91; RESP 18; TEMP 36.9; O2SAT 100
[2025-05-31] MEDS: KETOROLAC 15 MG/ML VIAL (*BKC) IV PUSH ×2 (13:46→17:14)
--- NOTE | 2025-06-05 13:23 | PM.DS ---
DS: Admitting Diagnosis Discharge Date 05/31/25 Admitting Diagnosis pelvic pain DS: Discharge Diagnosis Discharge Diagnosis (1) Degeneration of uterine fibroid: Code(s): D25.9 - Leiomyoma of uterus, unspecified Status: Acute DS: Summary Hospital Course Hospital Course: Patient was admitted for pain control of pelvic pain of [address] scan demonstrated multiple large fibroids with cystic changes of the largest, suggesting fibroid degeneration. Her pain was improved with IV toradol and she was meeting other milestones. On HD#1 she was stable for discharge home Time Spent with Patient Time attestation: Total time spent providing and/or coordinating discharge services: Discharge Plan Discharge Attending physician on discharge: Willy Vásquez Consulting providers: Roland Tariq; Landry John; Jamar Montanez; Oziel Henry Discharging Clinician: Willy Vásquez Patient Disposition: Home Activity: may shower and as tolerated Diet: as tolerated Patient Instructions: Antibiotic Form Patient Language: Upper Sorbian Stand Alone Forms: General Discharge Information Follow-up/Referrals: Willy Vásquez MD [Physician, [facility]] - 1 Week Discharge Medications: New ibuprofen 600 mg tablet 600 mg PO Q6H PRN (Reason: pain) Qty: 30 0RF Continued hydrocodone-acetaminophen 5-325 mg tablet 1 tablet PO Q12H PRN (Reason: pain) Qty: 14 0RF Date of admission: 05/30/25 21:02 Primary Care Provider: UNKNOWN,DOCTOR Admitting Provider: Willy Vásquez Attending physician on admission: Willy Vásquez Condition: Stable
== END 2025-05-31 18:20 | disposition home or self-care (01) ==
LOC: ANHED 21:11 → ANH2MED 22:46
PROVIDERS: Admitting Provider Obstetrics & Gynecology; Emergency Provider Registered Nurse; Visit Provider Obstetrics & Gynecology
DX: D25.9 Leiomyoma of uterus, unspecified (principal)
CPT/HCPCS: 36415; 74177; 80053; 81003; 83605; 83690; 85025; 85610; 85730; 86140; 93005; 96361; 96374; 96375; 96376; 99285; G0378; J1171; J1885; J2405; J7030; Q9967